=== PATIENT | female | born 1965 | race Caucasian/White ===

== ENCOUNTER 2019-12-08 07:49 | Outpatient (CLI) | payer OTHER, SELFPAY ==
--- NOTE | ~2019-12-08 | US_ITS ---
EXAMINATION: US abdomen complete DATE: 12/08/2019 09:04 INDICATION: Abnormal findings of blood chemistry TECHNIQUE: Multiple grayscale and Doppler ultrasound images of the abdomen were obtained. COMPARISON: None available FINDINGS: The head and and body of the pancreas are normal. The pancreatic tail is obscured by bowel gas. The liver is normal with normal echogenicity and echotexture. No surface nodularity. Normal hepa topetal flow in the main portal vein. The gallbladder is normal with no abnormal wall thickening, per icholecystic fluid or stones. The normal common bile duct measures 3 mm. There was no sonographic Mur phy sign. The visualized portions of the aorta and inferior vena cava are normal. The right kidney measures 9.1 x 4.9 x 5.3 cm. The left kidney measures 9.5 x 5.0 x 5.6 cm. The kidney s demonstrate normal parenchymal echogenicity. There is no hydronephrosis. The spleen is normal in ap pearance and measures 10.8 cm. IMPRESSION: 1. No sonographic correlate for the patient's symptoms. Reviewed, dictated and finalized at location A.
== END 2019-12-08 07:50 | disposition home or self-care (01) ==
PROVIDERS: PCP Family Medicine; Visit Provider Physician Assistant Medical
DX: R79.89 Other specified abnormal findings of blood chemistry (principal)
CPT/HCPCS: 76700

== ENCOUNTER → 2020-07-13 06:57 | Outpatient (CLI) | payer OTHER, SELFPAY ==
[2020-07-14 19:48] LABS: SARS-CoV-2 RNA PCR Negative
== END ==
PROVIDERS: PCP Family Medicine; Visit Provider Nurse Practitioner Family
DX: Z20.822 Contact with and (suspected) exposure to COVID-19 (principal); J02.9 Acute pharyngitis, unspecified
CPT/HCPCS: C9803; U0003; U0005

== ENCOUNTER 2020-11-19 14:36 | Outpatient (CLI) | payer OTHER, SELFPAY ==
--- NOTE | ~2020-11-19 | MM_ITS ---
EXAMINATION: MM screening ludwig BI w benjamin HISTORY: Screening mammogram TECHNIQUE: Craniocaudal and mediolateral oblique 3-D tomosynthesis images were obtained and synthetic 2-D images were generated. CAD analysis was submitted and interpreted. COMPARISON: 07/13/2015, 07/14/2014 bilateral digital screening mammogram examinations BREAST PARENCHYMAL COMPOSITION: The breasts are almost entirely fatty. FINDINGS: There is no evidence of suspicious mass, calcification, or architectural distortion to sugg est malignancy in either breast. There has been no suspicious interval change. IMPRESSION: 1. No mammographic evidence of malignancy. 2. Recommend routine screening mammography in one year. BI-RADS Category 1: Negative Reviewed, dictated and finalized at location A.
== END 2020-11-19 14:37 | disposition home or self-care (01) ==
LOC: ANHIMG 14:38
PROVIDERS: PCP Family Medicine; Visit Provider Physician Assistant Medical
DX: Z12.31 Encounter for screening mammogram for malignant neoplasm of breast (principal)
CPT/HCPCS: 77063; 77067

== ENCOUNTER 2020-12-06 08:51 | Outpatient (CLI) | payer OTHER, SELFPAY ==
--- NOTE | 2020-12-24 09:48 | WPDHOMESLEEP ---
Sleep Study - Home Unattended Date of Study: 12/06/20 Ordering Provider: Mookie Perez MD Interpreting Provider: Carley Paula MD Home Sleep Study Type: Watch PAT Height: 1.78 m Weight: 122.47 kg Body Mass Index: 38.7 Neck Circumference (inches): 17 [place]: 15 Reason for Sleep Study Insomnia; fatigue snoring, tachycardia 10/24/2015- Basic sleep study; AHI 3.4 with loud snoring, lowest saturation 90%, elevated limb movement index Sleep History Derek Casey is a 55 year old female with a history of a sleep study in 2016 that showed mild apnea. She has fatigue, snoring and tachycardia. She has significant excessive daytime sleepiness and difficulty waking in the morning. There is a family history with her father having sleep apnea. She does not awaken from sleep feeling short of breath. She rarely awakens at night with heartburn, belching or coughing. She constantly snores and it is always loud enough that others complain about it. She occasionally has trouble sleeping with a cold. She does not wake up gasping for breath at night. She frequently has breathing problems at night observed by others. She frequently sweats excessively at night and notices her heart pounding or beating irregularly night. She frequently falls asleep during the day, never involuntarily and she never falls asleep while driving. She does not have loss of muscle tone was strong emotion. She rarely has daytime difficulties due to excessive sleepiness. She does not feel paralyzed on waking or falling asleep, does not have vivid dreamlike scenes upon awakening or falling asleep and does not feel afraid to go to sleep. She rarely has nightmares, she rarely remembers her dreams. She occasionally has racing thoughts, feelings of sadness, depression and anxiety. She rarely has muscular tension. She does not notice parts of her body jerking, she does not kick at night or have crawling or aching feelings in her legs. She does not have any kind of leg pain at night. She occasionally has morning jaw pain. She does not grind her teeth during sleep. She is not bothered by pain during the day or awakened by pain at night. She constantly wakes up feeling stiff in the morning. She does not wake up with sore or achy muscles. She frequently wakes up with pain in the neck and spine. She has palpitations and fatigue. Normal bedtime 8:00 p.m. falling asleep within 15 minutes waking 2-3 times at night to use the bathroom and then she returns to sleep within just a few minutes. She wakes the morning at 7:00 a.m.. She estimates getting 12 hours of sleep at night. On the weekends, she goes to bed later, 10:00 p.m. and wakes later, 9:00 a.m. She takes naps in the afternoon or evening. A short nap lasting 10 or 15 minutes is not refreshing. She is usually drowsy in the morning for 1 hour or longer. She feels better in the morning compared other times of day. Habits: Caffeine: 1 per day. Alcohol: social alcohol intake. No recreational drugs. [facility] Past Medical History Medical History BMI 40.0-44.9, adult Cardiac arrhythmia Degenerative arthritis of knee, bilateral Hypertension Surgical History Surgical History H/O knee surgery scope, july 2012 Dr. 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
[2020-12-24 10:15] VITALS: BMI 38.7
== END 2020-12-07 14:17 | disposition home or self-care (01) ==
LOC: ANHCSM 08:52
PROVIDERS: PCP Family Medicine; Visit Provider Family Medicine
DX: G47.00 Insomnia, unspecified (principal); G47.33 Obstructive sleep apnea (adult) (pediatric)
CPT/HCPCS: 95800

== ENCOUNTER 2022-05-27 09:07 | Outpatient (CLI) | payer OTHER, SELFPAY ==
[2022-05-27 09:38] LABS: Anion Gap 4 mmol/L (8-16); Blood Urea Nitrogen 11 mg/dL (7-17); Calcium 8.3 mg/dL (8.4-10.2); Carbon Dioxide 28 mmol/L (22-30); Chloride 105 mmol/L (98-107); Estimated Glomerular Filt Rate 52; Glucose 108 mg/dL (65-110); Potassium 4.2 mmol/L (3.4-5.0); Sodium 137 mmol/L (137-145)
--- NOTE | 2022-05-27 09:43 | ECG_ITS ---
Measurements Intervals [place] Rate: 142 P: NM: 0 QRS: -55 QRSD: 137 T: 10 QT: 288 QTc: 443 Interpretive Statements ATRIAL FLUTTER/TACHYCARDIA WITH RAPID VENTRICULAR RESPONSE WITH ABERRANT CONDUCTION OR VENTRICULAR PREMATURE COMPLEXES BASELINE ARTIFACT INTRAVENTRICULAR CONDUCTION DELAY [130+ ms QRS DURATION] CANNOT RULE OUT ANTEROSEPTAL MYOCARDIAL INFARCTION , OF INDETERMINATE AGE ABNORMAL ECG COMPARED TO ECG 05/27/2022 10:01:00 NO SIGNIFICANT CHANGES Electronically Signed On 05-27-2022 17:56:53 [employer] by Rick Wells M.D.
== END 2022-05-27 09:08 | disposition home or self-care (01) ==
PROVIDERS: PCP Family Medicine; Visit Provider Physician Assistant Medical
DX: I49.9 Cardiac arrhythmia, unspecified (principal); I45.9 Conduction disorder, unspecified; R94.31 Abnormal electrocardiogram [ECG] [EKG]
CPT/HCPCS: 36415; 80048; 93005

== ENCOUNTER 2022-05-27 10:59 | Inpatient (IN) | payer OTHER, SELFPAY ==
[2022-05-27] VITALS (64 sets, daily range): BP systolic 100–147; BP diastolic 71–107; PULSE 71–143; RESP 11–30; TEMP 36–36.6; O2SAT 91–100; BMI 41.4; BMI 42.5
--- NOTE | 2022-05-27 11:01 | ECG_ITS ---
Measurements Intervals [place] Rate: 144 P: [place]: 0 QRS: -39 QRSD: 96 T: -5 QT: 290 QTc: 449 Interpretive Statements ATRIAL FLUTTER/TACHYCARDIA WITH RAPID VENTRICULAR RESPONSE WITH ABERRANT CONDUCTION OR VENTRICULAR PREMATURE COMPLEXES BASELINE ARTIFACT CANNOT RULE OUT ANTEROSEPTAL MYOCARDIAL INFARCTION , OF INDETERMINATE AGE ABNORMAL ECG NO PREVIOUS ECG AVAILABLE FOR COMPARISON Electronically Signed On 05-27-2022 17:53:20 [employer] by Rick Wells M.D.
[2022-05-27] MEDS: METOPROLOL TARTRATE INJ 5 MG/5 ML VIAL IV PUSH (12:09)
[2022-05-27 12:14] LABS: Basophils Absolute Auto 0.1 K/mm3 (0.0-0.1); Basophils Percent Auto 0.9 % (0.2-1.2); Eosinophils Absolute Auto 0.1 K/mm3 (0-0.3); Eosinophils Percent Auto 0.8 % (0-4.4); Hematocrit 45.2 % (37.0-47.0); Hemoglobin 14.7 g/dL (12.0-15.0); Immature Granulocyte Absolute 0.03 K/mm3 (0.00-0.031); Immature Granulocyte Percent A 0.3 % (0-0.5); Lymphocytes Absolute Auto 1.71 K/mm3 (0.9-3.2); Lymphocytes Percent Auto 18.5 % (18.3-44.2); Mean Corpuscular HGB Conc 32.5 g/dl (32-36); Mean Corpuscular Hemoglobin 30.2 pg (26-34); Mean Platelet Volume 11.1 fl (7.4-10.4); Monocytes Absolute Auto 0.6 K/mm3 (0.1-0.6); Monocytes Percent Auto 6.4 % (2.6-8.5); Neutrophils Absolute Auto 6.7 K/mm3 (1.3-6.7); Neutrophils Percent Auto 73.1 % (45.5-73.1); Platelet Count Result 267 k/mm3 (150-375); Red Blood Count 4.86 M/mm3 (4.2-5.4); Red Cell Distribution Width 13.2 % (11.5-14.5); White Blood Count 9.2 K/mm3 (4.5-10.0)
[2022-05-27 12:26] LABS: Alanine Aminotransferase 21 U/L (6-35); Albumin Level 3.9 g/dL (3.5-5.1); Alkaline Phosphatase 53 U/L (38-126); Anion Gap 4 mmol/L (8-16); Aspartate Amino Transferase 26 U/L (14-36); Bilirubin,Total 1.5 mg/dL (0.2-1.3); Blood Urea Nitrogen 11 mg/dL (7-17); Calcium 8.5 mg/dL (8.4-10.2); Carbon Dioxide 29 mmol/L (22-30); Chloride 105 mmol/L (98-107); Estimated CRCL calculation 76 ml/min; Estimated Glomerular Filt Rate 52; Glucose 99 mg/dL (65-110); Potassium 4.1 mmol/L (3.4-5.0); Sodium 138 mmol/L (137-145)
[2022-05-27 12:29] LABS: Prothrombin Time 13.2 Seconds (11.1-14.7)
[2022-05-27 12:30] LABS: Partial Thromboplastin Time 24.1 SECONDS (22.3-36.8)
[2022-05-27 12:37] LABS: Troponin I < 0.012 ng/mL (0.000-0.034)
[2022-05-27] MEDS: dilTIAZem HCl INJ 25 MG/5 ML VIAL 15 MG IV PUSH (12:55)
--- NOTE | 2022-05-27 13:40 | ED.GENADULT ---
HPI - General Adult General Chief complaint: Recheck/Abnormal Lab/Rx Stated complaint: new onset afib Time Seen by Provider: 05/27/22 11:23 Source: patient Mode of arrival: ambulatory Limitations: no limitations History of Present Illness HPI narrative: 57-year-old with a history of hypertension, morbid obesity, NAS here with complaints of not feeling well for past few days. Patient states that she was to her primary doctor's office for her blood pressure check and blood work however she was found to have high heart rate was later referred to the ER for evaluation of her heart rate. Patient states that approximately 5 or 6 years ago she had a similar episode. She presently denies any chest pain, shortness of breath or vomiting or fever or feeling lightheaded. Related Data Allergies Allergy/AdvReac Type Severity Reaction Status Date / Time Penicillins Allergy Unknown Unknown Verified 05/27/22 07:27 sulfanilamide Allergy Unknown Unknown Verified 05/27/22 07:27 Review of Systems Review of Systems: All systems reviewed & are unremarkable except as noted in HPI and below Constitutional: Constitutional: Reports no additional constitutional complaints Eyes: Eyes: Reports no additional eye complaints ENT: Reports system reviewed and no additional complaints, except as documented Cardiovascular: Cardiovascular: Reports as per HPI Respiratory: Respiratory: Reports no additional respiratory complaints Gastrointestinal: Gastrointestinal: Reports no additional gastrointestinal complaints Musculoskeletal: Musculoskeletal: Reports no additional musculoskeletal complaints Integumentary/Breasts: Skin/Breast: Reports system reviewed and no additional complaints, except as docu Neurologic: Reports system reviewed and no additional complaints, except as documented Psychiatric: Psychiatric: Reports no additional psychiatric complaints [facility] Past Medical History Medical History BMI 40.0-44.9, adult Cardiac arrhythmia Degenerative arthritis of knee, bilateral Hypertension Surgical History Surgical History H/O knee surgery scope, july 2012 Dr. Torres H/O: section Family History Family History Father Hypertension Mother Hypertension Diabetes mellitus Heart disease Sibling COVID-19 Social History Social History Smoking status: Never smoker Second hand tobacco smoke exposure: No Alcohol intake: current Substance use: former Substance use type: does not use Lack of Transportation: No Lack of Food: Never True Current Housing: I Have Housing Concerned About Future Housing: No Difficulty Paying Gas/Electric Bills: No Difficulty Paying for Meds: No Currently Unemployed: No Education: Master's Degree or Higher Difficulty w/ Childcare or Family Care: No 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 HEAD: Normocephalic, atraumatic. EYES: PERRLA and EOMI.. NECK: Supple. CHEST: Clear to auscultation. No respiratory distress. HEART: Tachycardic ABDOMEN: Soft, nontender, nondistended, normal active bowel sounds. EXTREMITIES: Normal range of motion. No edema. SKIN: Warm, dry, no rash. NEURO: No focal deficits. Alert and oriented x3. PSYCH: Normal mood and affect. Course Course Emergency Course: Patient upon arrival was tachycardic EKG shows a flutter with a heart rate in 140s. I did give her IV Lopressor 5 mg which has brought her heart rate down, I opted to give her Cardizem 15 mg IV push which brought her heart rate down to 88 and she still remains in flutter we will start Cardizem drip. Consult cardiology likely admit her to the
[2022-05-27] MEDS: dilTIAZem 100 MG/100 ML 100 MG/100 ML BAG IV CONT (13:48)
[2022-05-27 13:52] LABS: Influenza A QL RT-PCR Negative (Negative); Influenza B QL RT-PCR Negative (Negative); SARS-CoV-2 RNA PCR Negative
[2022-05-27] MEDS: ENOXAPARIN 100 MG/ML SYRINGE SUB-Q (14:26)
[2022-05-27] MEDS: ENOXAPARIN 30 MG/0.3 ML SYRINGE SUB-Q (14:27)
[2022-05-27] MEDS: dilTIAZem HCl INJ 25 MG/5 ML VIAL 10 MG IV PUSH (16:41)
--- NOTE | 2022-05-27 16:47 | PC.NURSE ---
Patient's heart rate fluctuating back up to 130s-140s with many PVCs. Dr. Serna notified and verbal order received for Cardizem 10 mg IV push. Instructed not to increase the drip rate. Order read back and verified twice.
[2022-05-27 17:07] LABS: Troponin I < 0.012 ng/mL (0.000-0.034)
--- NOTE | 2022-05-27 17:26 | ADMGEN ---
This patient, Helen Casey, was admitted to IMU Room 211-01. Patient/family oriented to hospital policies and general routines including ID bracelet, bed and alarms, visiting hours, pain management, procedures, bathroom and other care routines, personal items, smoking policy, room service/diet, and visiting hours. Information on how to activate the Rapid Response Team has been discussed. Patient/Family are encouraged to report perceived risks to care and to ask questions if they do not understand what they are told or what they should do.
--- NOTE | 2022-05-27 19:00 | PM.IMHP ---
H&P: HPI History of Present Illness Date/Time: 05/27/22 19:00 Chief Complaint: Abnormal heart rate. Narrative: This is a very pleasant 57-year-old female with hypertension and sleep apnea who presented to the emergency department from her doctor's office for evaluation of abnormal heart rate. She went to her doctor for a blood pressure check today and incidentally she was found to have a rapid heart rate of which she was asymptomatic. EKG done in office was concerning for atrial fibrillation or flutter and she was sent to the ER. EKG did show atrial flutter/tachycardia with rapid ventricular response and evidence of a possible anteroseptal UT and she is being admitted in this setting for further workup. She reports a history of wide complex tachycardia and had an extensive workup for that in [place] several years ago. To her knowledge she was never diagnosed with atrial fibrillation, atrial flutter, or ventricular tachycardia and she reports an unremarkable workup. She does not have any sensations of racing heart, palpitations, or chest discomfort though with further questioning she has been increasingly fatigued and more short of breath with exertion for the past month or so. She also admits that her smart watch has told her that her heart rate has been in the 140s previously though she had no sensations of racing heart and she thought that it was broken. She was diagnosed with sleep apnea within the last year but she admits that she is not very compliant with the CPAP however when she does wear it she feels a lot less tired throughout the day. She has no known history of thyroid disease. She denies significant alcohol and caffeine use. No syncope, presyncope, pleuritic pain, paroxysmal nocturnal dyspnea, orthopnea, or lower extremity edema. Review of Systems Review of Systems: Twelve systems were reviewed and are negative except for as per HPI. [facility] Past Medical History Medical History (Updated 05/27/22 @ 21:13 by Sadia Newby PA-C) BMI 40.0-44.9, adult Degenerative arthritis of knee, bilateral Hypertension Obstructive sleep apnea on CPAP Surgical History Surgical History (Updated 05/27/22 @ 21:09 by Sadia Newby PA-C) History of arthroscopic knee surgery (07/2012) History of section Family History Family History Father Hypertension Mother Diabetes mellitus Hypertension Heart disease Sibling COVID-19 Social History Social History (Updated 05/27/22 @ 21:12 by Sadia Newby PA-C) Social History: Surrogate medical decision maker: Tomi Casey, spouse. Code status: Full code. Smoking status: Never smoker Second hand tobacco smoke exposure: No Alcohol intake: current Drinks per week: 1 Substance use: never Substance use type: does not use Other substance usage details: 1 ruth a month Lack of Transportation: No Lack of Food: Never True Current Housing: I Have Housing Concerned About Future Housing: No Difficulty Paying Gas/Electric Bills: No Difficulty Paying for Meds: No Currently Unemployed: No Education: Master's Degree or Higher Difficulty w/ Childcare or Family Care: No Additional living arrangements comments: Lives in [place] with spouse. They have 3 children. 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 Spiritual care concerns: No Meds Home Medications and Allergies Home Medications Medication Instructions Recorded Confirmed Type albuterol sulfate 90 mcg/actuation See Rx Instructions .Route 03/04/21 05/27/22 Rx aerosol inhaler .COMPLEX #36 grams meloxicam 15 mg tablet 15 mg PO DAILY #90 tabs 08/12/21 05/27/22 Rx levonorgestrel 0.15 mg-ethinyl 1 tablet PO DAILY #91 ea 02/11/22 05/27/22 Rx estradiol 30 mcg tablets,3 mos pack(91) escitalopram oxalate 20 mg tablet 20 mg PO DAILY #90 tabs 04/23/22 05/27/22 Rx (Lexapro) losartan 50 mg
[2022-05-27 20:54] LABS: Troponin I < 0.012 ng/mL (0.000-0.034)
[2022-05-27] MEDS: ENOXAPARIN 80 MG/0.8 ML SYRINGE 130 MG SUB-Q (22:48)
[2022-05-27] MEDS: METOPROLOL TARTRATE 50 MG TAB BY MOUTH (22:49)
[2022-05-28] VITALS (22 sets, daily range): BP systolic 137–149; BP diastolic 82–114; PULSE 20–128; RESP 18–23; TEMP 35.7–36.7; O2SAT 94–99
[2022-05-28 05:26] LABS: Anion Gap 6 mmol/L (8-16); Blood Urea Nitrogen 11 mg/dL (7-17); Calcium 8.3 mg/dL (8.4-10.2); Carbon Dioxide 26 mmol/L (22-30); Chloride 107 mmol/L (98-107); Estimated CRCL calculation 84 ml/min; Estimated Glomerular Filt Rate 58; Glucose 95 mg/dL (65-110); Sodium 139 mmol/L (137-145)
--- NOTE | 2022-05-28 08:00 | ECHO_ITS ---
Patient Info Name: Helen Casey Age: 57 years : 1965 Gender: Female Ht: 70 in Wt: 296 lbs BSA: 2.64 m2 HR: 68 bpm BP: 142 / 90 mmHg Heart Rhythm: Atrial Flutter Exam Date: 05/28/2022 11:18 AM Exam Location: [facility] Patient Status: Inpatient Admit Date: 05/27/2022 Staff Ordering Physician: Sadia Newby PA-C Actuary Clerk: Ivan Leslie, KADEN, RT Attending Provider: Barrett Mullen MD Referring Physician: Keyonna AGUILAR; Exam Type: CA echo dop color flow w con Study Info Indications - Atrial Flutter I49.8 - Other specified cardiac arrhythmias Complete two-dimensional, color flow and Doppler transthoracic echocardiogram is performed with contrast to opacify the left ventricle and to improve the deliniation of the left ventricle endocardial borders. Summary 1. Technically difficult study with limited views. Definity contrast enhancement administered. 2. Left ventricular chamber dimension is normal. 3. Left ventricular systolic function is lower limits of normal, estimated at 50-55%. 4. There is moderately increased left ventricular wall thickness. 5. The left ventricular diastolic function is abnormal. 6. Left atrial chamber dimension is mildly enlarged. 7. There is moderate mitral valve regurgitation. 8. There is mild tricuspid valve regurgitation. 9. Moderate pulmonary hypertension, estimated pulmonary arterial systolic pressure is 50 mmHg. 10. Dilated inferior vena cava with <50% collapse upon inspiration consistent with significantly elevated right atrial pressure, 15 mmHg. Left Ventricle Left ventricular chamber dimension is normal. Left ventricular systolic function is lower limits of normal, estimated at 50-55%. There is moderately increased left ventricular wall thickness. The left ventricular diastolic function is abnormal. Technically difficult study with limited views. Definity contrast enhancement administered. Right Ventricle Right ventricular chamber dimension is normal. Right ventricular systolic function is normal. Left Atria Left atrial chamber dimension is mildly enlarged. Right Atria Right atrial chamber dimension is mildly enlarged. Aortic Valve The aortic valve is probable trileaflet. There is no aortic valve stenosis. There is trace aortic valve regurgitation. Pulmonic Valve The pulmonic valve is not well visualized. Mitral Valve The mitral valve has thickened leaflets. There is moderate mitral valve regurgitation. Tricuspid Valve The tricuspid valve leaflets are normal. There is mild tricuspid valve regurgitation. Moderate pulmonary hypertension, estimated pulmonary arterial systolic pressure is 50 mmHg. Pericardium/Pleural The pericardium appears epicardial fat pad. There is no pericardial effusion. Inferior Vena Cava Dilated inferior vena cava with <50% collapse upon inspiration consistent with significantly elevated right atrial pressure, 15 mmHg. Aorta The aortic root size at the sinus of Valsalva is normal. There is mild aortic atherosclerosis. Left Ventricular Outflow Tract Name Value Normal LVOT 2D LVOT Diameter 2.21 cm LVOT Doppler
[2022-05-28] MEDS: ENOXAPARIN 80 MG/0.8 ML SYRINGE 130 MG SUB-Q (08:04)
[2022-05-28] MEDS: ESCITALOPRAM OXALATE 10 MG TABLET 20 MG PO (08:04)
[2022-05-28] MEDS: LOSARTAN POTASSIUM 25 MG TABLET BY MOUTH (08:04)
[2022-05-28] MEDS: LOSARTAN POTASSIUM 50 MG TABLET BY MOUTH (08:05)
[2022-05-28] MEDS: MELOXICAM 7.5 MG TABLET 15 MG PO (08:05)
[2022-05-28] MEDS: METOPROLOL TARTRATE 50 MG TAB BY MOUTH (08:06)
[2022-05-28] MEDS: dilTIAZem 100 MG/100 ML 100 MG/100 ML BAG IV CONT (08:49)
[2022-05-28] MEDS: ALBUTEROL SULFATE (*SP) AEROSOL 1 PUFF INHALATION (09:05)
[2022-05-28] MEDS: PERFLUTREN LIPID MICROSPHERES 1.5 ML VIAL DILUTED TO 10 ML TOTAL VOLUME IV PUSH (11:49)
--- NOTE | 2022-05-28 11:49 | IVDEFINITY ---
Prior to administration of IV Definity the patient was educated on the risks and benefits of the imaging enhancing agent including potential adverse side effects. The patient verbalized understanding. Allergies were verified. No exclusion criteria were identified and at least one of the following inclusion criteria were met: 1) physician request, 2) patient technically difficult to image (per the [place] [employer] Echocardi[employer] guidelines of two or more segments not discernable within the apical view), or 3) questionable left ventricular function. ?
--- NOTE | 2022-05-28 11:53 | PM.IMPN ---
Progress Note: A&P Assessment and Plan (1) Atrial flutter with rapid ventricular response: Code(s): I48.92 - Unspecified atrial flutter Status: Acute Assessment and Plan: Heart rate still elevated. Continue Cardizem drip. Cardiology consult. On anticoagulation (2) Hypertension: Code(s): I10 - Essential (primary) hypertension Status: Acute (3) Obstructive sleep apnea on CPAP: Code(s): G47.33 - Obstructive sleep apnea (adult) (pediatric); Z99.89 - Dependence on other enabling machines and devices Status: Acute Assessment and Plan: CPAP Subjective Date/time seen: 05/28/22 11:53 No new complaints. Heart rate still elevated. Exam Narrative: General: Well-developed female supine in bed in no distress. Weight: 34.3 kilograms. BMI: 42.5. HEENT: PERRL, EOMI. Sclera anicteric. Oral mucosa moist. Neck: Supple. No obvious JVD. Respiratory: Lungs are clear to auscultation bilaterally. Cardiovascular: Tachycardic with normal S1-S2. Gastrointestinal: Abdomen is soft, obese, nontender, and nondistended with positive bowel sounds. Skin: Warm and dry. No rash or lesions on limited exam. Extremities: No cyanosis, clubbing, or edema. Radial and pedal pulses intact. Neurological: Alert. Cranial nerves 2-12 are grossly intact. No gross focal deficits to casual conversation. Psychiatric: Pleasant and cooperative with normal mood and affect. Judgment and insight intact. Objective Data Vital Signs Vital Signs: Vital Signs - 24 hr 05/27/22 12:09 05/27/22 12:00 05/27/22 12:15 Temperature Pulse Rate 141 H 141 H 143 H Respiratory Rate 24 H 13 Blood Pressure Pulse Oximetry 98 94 Oxygen Delivery 05/27/22 12:16 05/27/22 12:25 05/27/22 12:26 Temperature Pulse Rate 139 H 139 H 142 H Respiratory Rate 13 12 13 Blood Pressure 131/100 H Pulse Oximetry 100 96 98 Oxygen Delivery 05/27/22 12:30 05/27/22 12:33 05/27/22 12:34 Temperature Pulse Rate 140 H 139 H 140 H Respiratory Rate 11 L 23 H 17 Blood Pressure Pulse Oximetry 95 96 97 Oxygen Delivery 05/27/22 12:45 05/27/22 12:48 05/27/22 12:49 Temperature Pulse Rate 140 H 140 H 142 H Respiratory Rate 16 21 H 18 Blood Pressure 115/91 H Pulse Oximetry 97 97 96 Oxygen Delivery 05/27/22 13:00 05/27/22 13:01 05/27/22 13:02 Temperature Pulse Rate 86 84 77 Respiratory Rate 18 21 H 23 H Blood Pressure 100/71 Pulse Oximetry Oxygen Delivery 05/27/22 13:15 05/27/22 13:16 05/27/22 13:30 Temperature Pulse Rate 83 82 91 Respiratory Rate 22 H 22 H 19 Blood Pressure 123/90 Pulse Oximetry 98 96 96 Oxygen Delivery 05/27/22 13:31 05/27/22 13:45 05/27/22 13:46 Temperature Pulse Rate 85 82 71 Respiratory Rate 25 H 22 H 19 Blood Pressure 123/98 H 130/97 H Pulse Oximetry 99 97 99 Oxygen Delivery 05/27/22 13:48 05/27/22 13:47 05/27/22 14:00 Temperature Pulse Rate 81 97 75 Respiratory Rate 22 H 23 H Blood Pressure 130/97 H Pulse Oximetry 98 95 Oxygen Delivery 05/27/22 14:01 05/27/22 14:02 05/27/22 14:15 Temperature Pulse Rate 73 71 79 Respiratory Rate 22 H 18 23 H Blood Pressure 127/95 H Pulse Oximetry 96 97 96 Oxygen Delivery 05/27/22 14:16 05/27/22 14:17 05/27/22 14:30 Temperature Pulse Rate 79 75 93 Respiratory Rate 19 14 22 H Blood Pressure 125/89 Pulse Oximetry 97 98 96 Oxygen Delivery 05/27/22 14:31 05/27/22 14:45 05/27/22 14:46 Temperature Pulse Rate 77 82 74 Respiratory Rate 20 30 H 15 Blood Pressure 134/96 H 127/91 H Pulse Oximetry 100 97 96 Oxygen Delivery 05/27/22 14:47 05/27/22 15:00 05/27/22 15:01 Temperature Pulse Rate 74 91 82 Respiratory Rate 20 16 22 H Blood Pressure 123/94 H Pulse Oximetry 98 97 98 Oxygen Delivery 05/27/22 15:15 05/27/22 15:16 05/27/22 15:30 Temperature Pulse Rate 82 71 71 Respiratory Rate 19 18 18 Blood Pressure 126/92 H
[2022-05-28] MEDS: dilTIAZem HCL 30 MG TABLET PO (13:40)
--- NOTE | 2022-05-28 15:30 | PM.CNCAR ---
Assessment and Plan Assessment and plan (1) Atrial flutter with rapid ventricular response: Code(s): I48.92 - Unspecified atrial flutter Status: Acute Assessment and Plan: Mildly symptomatic new diagnosis atrial flutter with rapid ventricular response with fatigue declining activity tolerance which she believes she has noted periodically in the past although sustained over the past 5-7 days. Heart rate better controlled in atrial flutter. CHADS2 Vasc score 3 (HTN, female, recent diagnosis DM started on Metformin then stopped in favor of Ozempic). We discussed management options including rate versus rhythm control. We discussed embolic stroke risk associated with atrial flutter as well as atrial fibrillation. We discussed options for DAVID guided cardioversion in attempt to restore sinus rhythm. Given her NAS and obesity if DAVID guided cardioversion attempted would be best served with Anesthesiology. Patient is comfortable to rate control this time and follow as an outpatient after performing systemic anticoagulation. The plan for 7 day Holter monitor as outpatient to document persistence in overall heart rate control upon discharge. Patient agrees with rate control strategy at this time. TSH stable 3.960. Discontinue enoxaparin in favor of Xarelto 20 mg at bedtime to begin this evening. We discussed risks, benefits and alternatives. We discussed bleeding risk versus reduction in embolic stroke risk. Caution with ambulation to falls, head injury bleeding go to ER immediately. Discontinue diltiazem. Increase metoprolol tartrate to 100 mg twice daily to simplify regimen as tolerated. Compliance to CPAP. Discussed increased risk for tachyarrhythmias noncompliance. She verbalized understanding and agreed to comply. Provided heart rate remains reasonably controlled overnight and tolerating medical therapy anticipate discharge home tomorrow to follow up as an outpatient with Holter monitor in for planned cardioversion to restore sinus rhythm in approximately 1 month. All questions answered to her satisfaction. Patient verbalized understanding and agreed with plan of care. Outpatient referral to electrophysiology Dr Tubbs at [facility] as she has seen them previously for considerations for atrial flutter ablation. 2D echocardiogram moderate LVH, lower limit normal EF 50-55%. She will require follow-up with me within the next to 3 weeks. (2) Hypertension: Code(s): I10 - Essential (primary) hypertension Status: Acute Assessment and Plan: Hypertensive but stable. Continue losartan. If BP remains elevated increased to 100 mg daily. 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 Initially started metformin which was subsequently discontinued in favor of Ozempic. (4) Mitral regurgitation: Code(s): I34.0 - Nonrheumatic mitral (valve) insufficiency Status: Acute Assessment and Plan: Moderate in severity by echocardiogram. Will continue to monitor. Mild left atrial enlargement. (5) Pulmonary hypertension: Code(s): I27.20 - Pulmonary hypertension, unspecified Status: Acute Assessment and Plan: Moderate pulmonary hypertension RVSP estimated 50 mmHg with dilated IVC and less than 50% collapse estimated right atrial pressure 10-15 mm Hg. (6) Obstructive sleep apnea on CPAP: Code(s): G47.33 - Obstructive sleep apnea (adult) (pediatric); Z99.89 - Dependence on other enabling machines and devices Status: Acute Assessment and Plan: Compliance with CPAP as coun
[2022-05-28] MEDS: METOPROLOL TARTRATE INJ 5 MG/5 ML VIAL IV PUSH (17:26)
[2022-05-28] MEDS: RIVAROXABAN 20 MG TABLET PO (17:31)
[2022-05-28] MEDS: METOPROLOL TARTRATE 50 MG TAB PO (21:32)
[2022-05-29] VITALS (19 sets, daily range): BP systolic 119–152; BP diastolic 76–125; PULSE 62–135; RESP 18–22; TEMP 35.5–36.7; O2SAT 95–97
--- NOTE | 2022-05-29 08:00 | ECG_ITS ---
Measurements Intervals [place] Rate: 114 P: VT: 0 QRS: -48 QRSD: 96 T: -11 QT: 314 QTc: 433 Interpretive Statements ATRIAL FLUTTER/TACHYCARDIA WITH RAPID VENTRICULAR RESPONSE WITH ABERRANT CONDUCTION OR VENTRICULAR PREMATURE COMPLEXES MARKED LEFT AXIS DEVIATION [QRS AXIS < -30] POSSIBLE ANTERIOR MYOCARDIAL INFARCTION , OF INDETERMINATE AGE [30 ms Q WAVE IN V3/V4, OR R < 0.2 mV IN V4] COMPARED TO ECG 05/27/2022 11:06:42 NO SIGNIFICANT CHANGES Electronically Signed On 05-29-2022 14:58:12 FLARE BREAKER by Romulo Samuel M.D.
[2022-05-29] MEDS: LOSARTAN POTASSIUM 50 MG TABLET BY MOUTH (08:56)
[2022-05-29] MEDS: METOPROLOL TARTRATE 50 MG TAB 100 MG BY MOUTH ×2 (08:56→20:56)
[2022-05-29] MEDS: ESCITALOPRAM OXALATE 10 MG TABLET 20 MG PO (08:57)
[2022-05-29] MEDS: LOSARTAN POTASSIUM 25 MG TABLET BY MOUTH (08:57)
--- NOTE | 2022-05-29 09:22 | PM.PNCARD ---
Progress Note: A&P Assessment and Plan (1) Atrial flutter with rapid ventricular response: Code(s): I48.92 - Unspecified atrial flutter <MARIA LUISA Gong - Last Filed: 05/29/22 11:17> Status: Acute <MARIA LUISA Gong - Last Filed: 05/29/22 11:17> Assessment and Plan: Mildly symptomatic new diagnosis atrial flutter with rapid ventricular response with fatigue declining activity tolerance which she believes she has noted periodically in the past although sustained over the past 5-7 days. Attempting rate control strategy with metoprolol. Unfortunately, she remains in atrial flutter with RVR this morning rate in the 130's. Will restart diltiazem 30mg q6, but discussed plan for DAVID/CV tomorrow with anesthesia if she is not adequately rate controlled on this regimen. Patient verbalizes understanding and is in agreement with this plan. NPO after midnight. <MARIA LUISA Gong - Last Filed: 05/29/22 11:17> (2) Hypertension: Code(s): I10 - Essential (primary) hypertension <MARIA LUISA Gong - Last Filed: 05/29/22 11:17> Status: Acute <MARIA LUISA Gong - Last Filed: 05/29/22 11:17> Assessment and Plan: Hypertensive but stable. Continue losartan. If BP remains elevated increased to 100 mg daily. <MARIA LUISA Gong - Last Filed: 05/29/22 11:17> (3) Diabetes mellitus: Qualifiers: Diabetes mellitus complication status: without complication Diabetes mellitus penitentiary insulin use: without rn long term care use Diabetes mellitus type: type 2 Qualified Code(s): E11.9 - Type 2 diabetes mellitus without complications <MARIA LUISA Gong - Last Filed: 05/29/22 11:17> Code(s): E11.9 - Type 2 diabetes mellitus without complications <MARIA LUISA Gong - Last Filed: 05/29/22 11:17> Status: Acute <MARIA LUISA Gong - Last Filed: 05/29/22 11:17> Assessment and Plan: On Ozempic <MARIA LUISA Gong - Last Filed: 05/29/22 11:17> (4) Mitral regurgitation: Code(s): I34.0 - Nonrheumatic mitral (valve) insufficiency <MARIA LUISA Gong - Last Filed: 05/29/22 11:17> Status: Acute <MARIA LUISA Gong - Last Filed: 05/29/22 11:17> Assessment and Plan: Moderate in severity by echocardiogram. Outpatient surveillance. <MARIA LUISA Gong - Last Filed: 05/29/22 11:17> (5) Pulmonary hypertension: Code(s): I27.20 - Pulmonary hypertension, unspecified <MARIA LUISA Gong - Last Filed: 05/29/22 11:17> Status: Acute <MARIA LUISA Gong - Last Filed: 05/29/22 11:17> Assessment and Plan: Moderate pulmonary hypertension RVSP estimated 50 mmHg with dilated IVC and less than 50% collapse estimated right atrial pressure 10-15 mm Hg. <MARIA LUISA Gong - Last Filed: 05/29/22 11:17> (6) Obstructive sleep apnea on CPAP: Code(s): G47.33 - Obstructive sleep apnea (adult) (pediatric); Z99.89 - Dependence on other enabling machines and devices <MARIA LUISA Gong - Last Filed: 05/29/22 11:17> Status: Acute <MARIA LUISA Gong - Last Filed: 05/29/22 11:17> Assessment and Plan: On CPAP <MARIA LUISA Gong - Last Filed: 05/29/22 11:17> (7) Morbid obesity: Code(s): E66.01 - Morbid (severe) obesity due to excess calories <MARIA LUISA Gong - Last Filed: 05/29/22 11:17> Status: Acute <MARIA LUISA Gong - Last Filed: 05/29/22 11:17> Assessment and Plan: Lifestyle modifications counseling, weight loss. <MARIA LUISA Gong - Last Filed: 05/29/22 11:17> Assessment and Plan: Attending addendum: I agree with the above documentation and plan of care as outlined. <Rick Wells MD - Last Filed: 05/29/22 13:41> Subjective Date/time seen: 05/29/22 09:22 Cardiology follow up for atrial flutter <MARIA LUISA Gong - Last Filed: 05/29/22 11:17> Interval history: Fee
[2022-05-29 10:40] LABS: Anion Gap 4 mmol/L (8-16); Blood Urea Nitrogen 9 mg/dL (7-17); Calcium 8.4 mg/dL (8.4-10.2); Carbon Dioxide 28 mmol/L (22-30); Chloride 102 mmol/L (98-107); Estimated CRCL calculation 84 ml/min; Estimated Glomerular Filt Rate 58; Glucose 109 mg/dL (65-110); Magnesium 1.9 mg/dL (1.6-2.3); Potassium 4.1 mmol/L (3.4-5.0); Sodium 134 mmol/L (137-145)
[2022-05-29] MEDS: dilTIAZem HCL 30 MG TABLET PO ×3 (13:02→23:34)
--- NOTE | 2022-05-29 13:18 | PM.IMPN ---
Progress Note: A&P Assessment and Plan (1) Atrial flutter with rapid ventricular response: Code(s): I48.92 - Unspecified atrial flutter Status: Acute Assessment and Plan: Heart rate still elevated. Continue Cardizem drip. Cardiology consult. On anticoagulation (2) Hypertension: Code(s): I10 - Essential (primary) hypertension Status: Acute (3) Obstructive sleep apnea on CPAP: Code(s): G47.33 - Obstructive sleep apnea (adult) (pediatric); Z99.89 - Dependence on other enabling machines and devices Status: Acute Assessment and Plan: CPAP Subjective Date/time seen: 05/29/22 13:18 no complaints Exam Narrative: General: Well-developed female supine in bed in no distress. Weight: 34.3 kilograms. BMI: 42.5. HEENT: PERRL, EOMI. Sclera anicteric. Oral mucosa moist. Neck: Supple. No obvious JVD. Respiratory: Lungs are clear to auscultation bilaterally. Cardiovascular: Tachycardic with normal S1-S2. Gastrointestinal: Abdomen is soft, obese, nontender, and nondistended with positive bowel sounds. Skin: Warm and dry. No rash or lesions on limited exam. Extremities: No cyanosis, clubbing, or edema. Radial and pedal pulses intact. Neurological: Alert. Cranial nerves 2-12 are grossly intact. No gross focal deficits to casual conversation. Psychiatric: Pleasant and cooperative with normal mood and affect. Judgment and insight intact. Objective Data Vital Signs Vital Signs: Vital Signs - 24 hr 05/28/22 14:00 05/28/22 16:58 05/28/22 17:26 Temperature 96.8 F L Pulse Rate 70 91 90 Respiratory Rate 23 H Blood Pressure 149/101 H Pulse Oximetry 94 Oxygen Delivery 05/28/22 16:00 05/28/22 16:00 05/28/22 18:00 Temperature Pulse Rate 74 101 H Respiratory Rate Blood Pressure Pulse Oximetry Oxygen Delivery Room Air 05/28/22 20:00 05/28/22 21:32 05/28/22 22:13 Temperature 97.9 F Pulse Rate 20 L 111 H 99 Respiratory Rate 20 Blood Pressure 137/82 Pulse Oximetry 97 96 Oxygen Delivery CPAP 05/28/22 22:14 05/28/22 23:29 05/28/22 20:00 Temperature 98.0 F Pulse Rate 120 H Respiratory Rate 18 Blood Pressure 141/101 H Pulse Oximetry 96 99 Oxygen Delivery Room Air Room Air 05/29/22 00:00 05/28/22 20:00 05/28/22 22:00 Temperature Pulse Rate 102 H 107 H Respiratory Rate Blood Pressure Pulse Oximetry Oxygen Delivery Room Air 05/29/22 02:45 05/29/22 04:00 05/29/22 04:00 Temperature 98.0 F Pulse Rate 96 107 H Respiratory Rate 18 Blood Pressure 152/99 H Pulse Oximetry 95 97 Oxygen Delivery CPAP Room Air 05/29/22 00:00 05/29/22 02:00 05/29/22 04:00 Temperature Pulse Rate 95 111 H 113 H Respiratory Rate Blood Pressure Pulse Oximetry Oxygen Delivery 05/29/22 06:00 05/29/22 08:40 05/29/22 08:56 Temperature 96.9 F L Pulse Rate 115 H 135 H 113 H Respiratory Rate 20 Blood Pressure 145/97 H Pulse Oximetry 97 Oxygen Delivery 05/29/22 08:00 05/29/22 10:00 05/29/22 08:00 Temperature Pulse Rate 107 H 124 H Respiratory Rate Blood Pressure Pulse Oximetry Oxygen Delivery Room Air 05/29/22 12:31 Temperature 95.9 F L Pulse Rate 121 H Respiratory Rate 22 H Blood Pressure 142/125 H Pulse Oximetry 96 Oxygen Delivery Intake/Output Intake/Output: Intake & Output 05/26/22 05/27/22 05/28/22 05/29/22 23:59 23:59 23:59 23:59 Intake Total 1745 1000 Output Total 325 350 Balance -325 1395 1000 Meds/Results Medications: Active Medications Generic Name Dose Route Start Last Admin Trade Name Freq PRN Reason Stop Dose Admin Acetaminophen 650 mg 05/27/22 13:50 Acetaminophen 325 Mg Tablet PO Q4H PRN Mild Pain (1-3) or Fever Albuterol 1 puff 05/28/22 00:00 05/28/22 09:05 Albuterol Sulfate (*Sp) Aerosol 1 Puff INHALATION 1 puff Q4HRT PRN Administration SOB OR WHEEZING Diltiazem HCl 3
[2022-05-29] MEDS: RIVAROXABAN 20 MG TABLET PO (18:00)
[2022-05-30] VITALS (24 sets, daily range): BP systolic 114–169; BP diastolic 63–97; PULSE 18–109; RESP 12–22; TEMP 35.6–37; O2SAT 93–99
--- NOTE | 2022-05-30 | ECHO_ITS ---
Patient Info Name: Helen Casey Age: 57 years : 1965 Gender: Female Ht: 70 in Wt: 296 lbs BSA: 2.64 m2 HR: 111 bpm BP: 150 / 99 mmHg Heart Rhythm: Atrial Flutter Technical Quality: Good Exam Date: 05/30/2022 1:44 PM Exam Location: [facility] Pul[facility] Patient Status: Inpatient Admit Date: 05/29/2022 Staff Ordering Physician: Olga Pearce Packing Machine Can Feeder: Mirella Basurto RDCS Attending Provider: Barrett Mullen MD Referring Physician: Portia GUDINO; Exam Type: CA echo transesophageal Study Info Indications - pre cardioversion Complete two-dimensional, color flow and Doppler transesophageal study is performed. Summary 1. Absence of left atrial appendage thrombus confirmed prior to cardioversion. Report Signatures
--- NOTE | 2022-05-30 | ECG_ITS ---
Measurements Intervals [place] Rate: 64 P: 48 SD: 185 QRS: -30 QRSD: 98 T: 9 QT: 416 QTc: 431 Interpretive Statements SINUS RHYTHM POOR R-WAVE PROGRESSION LEFTWARD AXIS ABNORMAL ECG COMPARED WITH PRIOR TRACING SINUS RHYTHM REPLACES ATRIAL FLUTTER Electronically Signed On 05-30-2022 15:07:11 CHEF PASSENGER VESSEL by Barrett Chaudhry M.D.
--- NOTE | 2022-05-30 | ECG_ITS ---
Measurements Intervals [place] Rate: 89 P: LA: 0 QRS: -48 QRSD: 96 T: 10 QT: 384 QTc: 469 Interpretive Statements ATRIAL FLUTTER/TACHYCARDIA WITH ABERRANT QRS MORPHOLOGY NOTED LEFT ANTERIOR FASCICULAR BLOCK [QRS AXIS <= -45, QR IN I, RS IN II] ABNORMAL ECG Electronically Signed On 05-30-2022 15:06:04 TRAINING MGR by Barrett Chaudhry M.D.
[2022-05-30] MEDS: dilTIAZem HCL 30 MG TABLET PO ×4 (06:08→23:20)
[2022-05-30] MEDS: METOPROLOL TARTRATE 50 MG TAB 100 MG BY MOUTH ×2 (09:53→20:25)
[2022-05-30] MEDS: LOSARTAN POTASSIUM 50 MG TABLET BY MOUTH (09:53)
[2022-05-30] MEDS: LOSARTAN POTASSIUM 25 MG TABLET BY MOUTH (09:53)
[2022-05-30] MEDS: ESCITALOPRAM OXALATE 10 MG TABLET 20 MG PO (09:54)
--- NOTE | 2022-05-30 13:03 | WPDANESEPPF ---
Anes - Initial Pre Proc Eval Procedure: Operation Date: 05/30/22 14:30 Proposed Procedures p Trans Esophageal Echo - Barrett Chaudhry MD s Electrical Cardioversion - Barrett Chaudhry MD Date/Time: 05/30/22 13:03 Surgeon: Barrett Mullen MD Pre Op Diagnosis: atrial flutter with rvr Patient Data Age: 57 Gender: F Height: 1.78 m Weight: 134.5 kg Last Vital Signs Temp 35.9 C L 05/30/22 12:13 Pulse 84 05/30/22 12:13 Resp 20 05/30/22 12:13 BP 133/85 05/30/22 12:13 Pulse Ox 97 05/30/22 12:13 O2 Del Method Room Air 05/30/22 04:00 Allergies Allergy/AdvReac Type Severity Reaction Status Date / Time Penicillins Allergy Unknown Unknown Verified 05/27/22 07:27 sulfanilamide Allergy Unknown Unknown Verified 05/27/22 07:27 Home Medications Medication Instructions Recorded Confirmed Type albuterol sulfate 90 mcg/actuation See Rx Instructions .Route 03/04/21 05/27/22 Rx aerosol inhaler .COMPLEX #36 grams meloxicam 15 mg tablet 15 mg PO DAILY #90 tabs 08/12/21 05/27/22 Rx levonorgestrel 0.15 mg-ethinyl 1 tablet PO DAILY #91 ea 02/11/22 05/27/22 Rx estradiol 30 mcg tablets,3 mos pack(91) escitalopram oxalate 20 mg tablet 20 mg PO DAILY #90 tabs 04/23/22 05/27/22 Rx (Lexapro) losartan 50 mg tablet See Rx Instructions .Route 04/23/22 05/27/22 Rx .COMPLEX #135 tabs metoprolol tartrate 50 mg tablet See Rx Instructions .Route 04/27/22 05/27/22 Rx .COMPLEX #180 tabs Patient hx anesthesia problems: none Family hx anesthesia problems: none Results Review: All pre-operative results and documents have been reviewed as part of the pre-operative evaluation. [facility]LY [facility] Past Medical History Medical History BMI 40.0-44.9, adult Degenerative arthritis of knee, bilateral Hypertension Obstructive sleep apnea on CPAP Surgical History Surgical History History of arthroscopic knee surgery (07/2012) History of section Family History Family History Father Hypertension Mother Diabetes mellitus Hypertension Heart disease Sibling COVID-19 Social History Social History Social History: Surrogate medical decision maker: Tomi Casey, spouse. Code status: Full code. Smoking status: Never smoker Second hand tobacco smoke exposure: No Alcohol intake: current Drinks per week: 1 Substance use: never Substance use type: does not use Other substance usage details: 1 ruth a month Lack of Transportation: No Lack of Food: Never True Current Housing: I Have Housing Concerned About Future Housing: No Difficulty Paying Gas/Electric Bills: No Difficulty Paying for Meds: No Currently Unemployed: No Education: Master's Degree or Higher Difficulty w/ Childcare or Family Care: No Additional living arrangements comments: Lives in [place] with spouse. They have 3 children. 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 Spiritual care concerns: No Anes - Eval Final PreProcedure Day of Procedure 05/30/22 13:03 Patient weight: morbidly obese Heart: regular rate and rhythm Lungs: clear to auscultation Airway: Mallampati scale class III Neurological: alert and oriented Last oral intake: >/= 8 hours ASA classification: III Emergent: no Anesthetic plan: proceed Anesthesia type and monitoring: general GIVS and standard monitoring Results Review: All pre-operative results and documents have been reviewed as part of the pre-operative evaluation. Informed Consent: The patient's anesthetic plan and its attendant risks and benefits were discussed with the patient/family/POA. Questions were solicited and answers provided to the satisfaction of the patient/family/POA.
--- NOTE | 2022-05-30 13:39 | PC.NURSE ---
1315-to DAVID /cardioversion procedure via bed accompanied by RN's
--- NOTE | 2022-05-30 14:17 | PM.IMPN ---
Progress Note: A&P Assessment and Plan (1) Atrial flutter with rapid ventricular response: Code(s): I48.92 - Unspecified atrial flutter Status: Acute Assessment and Plan: Heart rate still elevated. Continue Cardizem drip. Cardiology consult. On anticoagulation (2) Hypertension: Code(s): I10 - Essential (primary) hypertension Status: Acute (3) Obstructive sleep apnea on CPAP: Code(s): G47.33 - Obstructive sleep apnea (adult) (pediatric); Z99.89 - Dependence on other enabling machines and devices Status: Acute Assessment and Plan: CPAP Subjective Date/time seen: 05/30/22 14:17 No complaints plan for cardioversion today Exam Narrative: General: Well-developed female supine in bed in no distress. Weight: 34.3 kilograms. BMI: 42.5. HEENT: PERRL, EOMI. Sclera anicteric. Oral mucosa moist. Neck: Supple. No obvious JVD. Respiratory: Lungs are clear to auscultation bilaterally. Cardiovascular: Tachycardic with normal S1-S2. Gastrointestinal: Abdomen is soft, obese, nontender, and nondistended with positive bowel sounds. Skin: Warm and dry. No rash or lesions on limited exam. Extremities: No cyanosis, clubbing, or edema. Radial and pedal pulses intact. Neurological: Alert. Cranial nerves 2-12 are grossly intact. No gross focal deficits to casual conversation. Psychiatric: Pleasant and cooperative with normal mood and affect. Judgment and insight intact. Objective Data Vital Signs Vital Signs: Vital Signs - 24 hr 05/29/22 17:00 05/29/22 16:00 05/29/22 16:00 Temperature 95.9 F L Pulse Rate 108 H 112 H Respiratory Rate 18 Blood Pressure 142/97 H Pulse Oximetry 96 Oxygen Delivery Room Air 05/29/22 18:00 05/29/22 20:00 05/29/22 20:56 Temperature 98.0 F Pulse Rate 97 62 96 Respiratory Rate 18 Blood Pressure 138/76 Pulse Oximetry 96 Oxygen Delivery 05/29/22 20:00 05/29/22 20:00 05/29/22 22:00 Temperature Pulse Rate 101 H 91 Respiratory Rate Blood Pressure Pulse Oximetry 96 Oxygen Delivery Room Air 05/29/22 23:48 05/30/22 00:00 05/30/22 00:00 Temperature 98.0 F Pulse Rate 67 67 Respiratory Rate 18 Blood Pressure 119/76 Pulse Oximetry 96 96 Oxygen Delivery Room Air 05/30/22 00:55 05/30/22 02:00 05/30/22 04:00 Temperature Pulse Rate 92 80 Respiratory Rate Blood Pressure Pulse Oximetry 96 96 Oxygen Delivery CPAP Room Air 05/30/22 04:00 05/30/22 04:00 05/30/22 06:00 Temperature 97.7 F Pulse Rate 72 67 100 Respiratory Rate 20 Blood Pressure 136/83 Pulse Oximetry 99 Oxygen Delivery 05/30/22 08:04 05/30/22 09:53 05/30/22 08:30 Temperature 96.1 F L Pulse Rate 90 109 H 81 Respiratory Rate 22 H Blood Pressure 169/97 H Pulse Oximetry 97 Oxygen Delivery 05/30/22 10:00 05/30/22 12:13 05/30/22 12:00 Temperature 96.6 F L Pulse Rate 95 84 93 Respiratory Rate 20 Blood Pressure 133/85 Pulse Oximetry 97 Oxygen Delivery Intake/Output Intake/Output: Intake & Output 05/27/22 05/28/22 05/29/22 05/30/22 23:59 23:59 23:59 23:59 Intake Total 1745 1860 400 Output Total 325 350 Balance -325 1395 1860 400 Meds/Results Medications: Active Medications Generic Name Dose Route Start Last Admin Trade Name Freq PRN Reason Stop Dose Admin Acetaminophen 650 mg 05/27/22 13:50 Acetaminophen 325 Mg Tablet PO Q4H PRN Mild Pain (1-3) or Fever Albuterol 1 puff 05/28/22 00:00 05/28/22 09:05 Albuterol Sulfate (*Sp) Aerosol 1 Puff INHALATION 1 puff Q4HRT PRN Administration SOB OR WHEEZING Diltiazem HCl 30 mg 05/29/22 12:00 05/30/22 12:45 Diltiazem Hcl 30 Mg Tablet PO 30 mg Q6HR CESAR Administration Escitalopram Oxalate 20 mg 05/28/22 09:00 05/30/22 09:54 Escitalopram Oxalate 10 Mg Tablet PO 20 mg DAILY CESAR Administration Losartan Potassium 50 mg 05/28/22 09:00 05/30/22 09:53
--- NOTE | 2022-05-30 14:25 | P.PCNCC_ITS ---
Cardiac Cath Procedure Note Date of procedure:: 05/30/22 Performing physician:: Barrett Chaudhry MD Indication:: Persistent atrial flutter Brief clinical history:: This is a 57-year-old woman who presented to the hospital several days ago complaining of some shortness of breath and palpitations. She was found to be in atrial flutter with rapid ventricular response. With medication her heart rate is controlled attempt BEBO cardioversion was recommended by my partner. Procedure Procedure performed:: Bebo/cardioversion Sedation/Medication given:: Patient sedated per the Anesthesia Service see their separately dictated note Estimated blood loss:: No blood loss Procedure note:: Patient was brought to the GI lab where she was placed in the supine position with defibrillator patches in the AP position. The patient had or pharyngeal benzocaine sprayed and a bite block placed into position. She was then sedated by the Anesthesia Service. With appropriate sedation the esophagus was intubated with the BEBO probe and the left atrium was inspected in its entirety including the appendage. There was no evidence of left atrial thrombus including in the appendage which looked clean. The BEBO probe was then withdrawn the patient was DC cardioverted with 200 joules x1 shock in a synchronized fashion which restored normal sinus rhythm. Findings:: As above Conclusion:: Successful uncomplicated BEBO/cardioversion terminating atrial flutter restoring sinus rhythm using 200 joules x1 shock after esophageal ECHO showed no evidence of left atrial thrombus. Barrett Chaudhry MD [facility]
--- NOTE | 2022-05-30 16:42 | PC.NURSE ---
@ 1500 - pt returned to room post DAVID/Cardioversion- SR 70's
[2022-05-30] MEDS: RIVAROXABAN 20 MG TABLET PO (17:31)
[2022-05-31] VITALS (8 sets, daily range): BP systolic 119–145; BP diastolic 66–88; PULSE 51–77; RESP 16–18; TEMP 36.2–36.6; O2SAT 95–97
[2022-05-31] MEDS: dilTIAZem HCL 30 MG TABLET PO (05:14)
--- NOTE | 2022-05-31 06:53 | WPDANESPN ---
Anes - Prog Note Post-Op Date/Time: 05/31/22 06:53 Cardiovascular status: normal Respiratory status: normal Airway patency: baseline Mental status: baseline Post-Op hydration status: normal Vital Signs: Last Vital Signs Temp 97.2 F L 05/31/22 04:00 Pulse 56 L 05/31/22 06:00 Resp 16 05/31/22 04:00 BP 130/79 05/31/22 04:00 Pulse Ox 96 05/31/22 04:00 O2 Del Method Room Air 05/31/22 04:00 O2 Flow Rate 3 05/30/22 14:20 Pain Score (VAS): 0/10 I/O: Intake & Output 05/30/22 05/30/22 05/31/22 15:59 23:59 07:59 Intake Total 540 500 Balance 540 500 Laboratory Tests 05/27/22 12:08 05/29/22 10:07 Post-procedural complaints: none Patient Feedback: Patient satisfied with anesthetic care.
--- NOTE | 2022-05-31 09:27 | PM.PNCARD ---
Progress Note: A&P Assessment and Plan (1) Atrial flutter with rapid ventricular response: Code(s): I48.92 - Unspecified atrial flutter Status: Acute Plan 57-year-old lady with a history of atrial fib and atrial flutter. Admitted with a symptomatic recurrence of atrial flutter and RVR. Because of persistent tachycardia underwent DAVID cardioversion yesterday restoring sinus rhythm. Today I will stop her diltiazem since she should not need that anymore for rate control. I am going to transition her metoprolol back to metoprolol succinate for her convenience. Current dosage is 200 mg daily. Systemic anticoagulation is also in place. I will see that the office reaches out to her for follow-up with my partner, Dr. Wells. She also will reach out to her underwriting manager in [place]. Okay for discharge at this time from my perspective Barrett Chaudhry MD [facility] Subjective Date/time seen: Date of service: 05/31/22 09:27 Interval history: Follow-up visit in this 57-year-old lady with: Atrial flutter with rapid ventricular response recurrence of her arrhythmia. Previous history of AFib which was ablated by underwriting manager in [place]. Patient is asymptomatic this morning status post DAVID/cardioversion yesterday restoring sinus rhythm. Exam Const: General: comfortable and no acute distress Other: Very pleasant obese lady no apparent distress HENMT: Mouth: Yes moist mucous membranes Eyes: Sclera: sclerae normal Neck: Neck: supple Resp: Effort & Inspection: normal respiratory effort Auscultation: clear to auscultation bilaterally Cardio: Rate: regular rate Rhythm: regular rhythm GI: GI Palp: Yes Soft to palpation Auscultation: normal bowel sounds Skin: General skin exam: normal color Neuro: Other: Alert and oriented x3 Objective Data Vital Signs Vital Signs: Vital Signs - 24 hr 05/30/22 09:53 05/30/22 10:00 05/30/22 12:13 Temperature 35.9 C L Pulse Rate 109 H 95 84 Respiratory Rate 20 Blood Pressure 133/85 Pulse Oximetry 97 Oxygen Delivery Oxygen Flow Rate 05/30/22 12:00 05/30/22 14:20 05/30/22 14:25 Temperature Pulse Rate 93 63 64 Respiratory Rate 12 12 Blood Pressure 119/83 124/89 Pulse Oximetry 97 93 Oxygen Delivery Nasal Cannula Room Air Oxygen Flow Rate 3 05/30/22 14:30 05/30/22 14:35 05/30/22 14:40 Temperature Pulse Rate 61 61 63 Respiratory Rate 22 H 20 20 Blood Pressure 123/79 114/83 125/85 Pulse Oximetry 93 93 94 Oxygen Delivery Room Air Room Air Room Air Oxygen Flow Rate 05/30/22 14:45 05/30/22 17:15 05/30/22 16:00 Temperature 36.5 C Pulse Rate 62 66 72 Respiratory Rate 22 H 20 Blood Pressure 130/63 132/81 Pulse Oximetry 97 95 Oxygen Delivery Room Air Oxygen Flow Rate 05/30/22 16:00 05/30/22 18:00 05/30/22 20:00 Temperature 37.0 C Pulse Rate 78 79 Respiratory Rate 16 Blood Pressure 130/78 Pulse Oximetry 96 Oxygen Delivery Room Air Oxygen Flow Rate 05/30/22 20:25 05/30/22 20:00 05/30/22 20:00 Temperature Pulse Rate 82 79 Respiratory Rate Blood Pressure Pulse Oximetry 96 Oxygen Delivery Room Air Oxygen Flow Rate 05/30/22 22:00 05/31/22 00:00 05/31/22 00:00 Temperature 36.6 C Pulse Rate 64 64 62 Respiratory Rate 18 Blood Pressure 119/66 Pulse Oximetry 95 Oxygen Delivery Oxygen Flow Rate 05/31/22 00:00 05/30/22 22:26 05/31/22 02:00 Temperature Pulse Rate 18 L 53 L Respiratory Rate Blood Pressure Pulse Oximetry 95 95 Oxygen Delivery Room Air CPAP Oxygen Flow Rate 05/31/22 04:00 05/31/22 04:00 05/31/22 04:00 Temperature 36.2 C L Pulse Rate 51 L 64 Respiratory Rate 16 Blood Pressure 130/79 Pulse Oximetry 95 96 Oxygen Delivery Room Air Oxygen Flow Rate 05/31/22 06:00 05/31/22 08:00 Temperature 36.4 C Pulse Rate 56 L 69 Respiratory Rate 18 Blood Pressure 141/83 H Pulse Oxime
[2022-05-31] MEDS: ESCITALOPRAM OXALATE 10 MG TABLET 20 MG PO (09:51)
[2022-05-31] MEDS: LOSARTAN POTASSIUM 50 MG TABLET BY MOUTH (09:52)
[2022-05-31] MEDS: LOSARTAN POTASSIUM 25 MG TABLET BY MOUTH (09:52)
[2022-05-31] MEDS: METOPROLOL SUCCINATE EXT REL 100 MG TABCR 200 MG PO (10:38)
--- NOTE | 2022-05-31 13:18 | PM.DS ---
DS: Admitting Diagnosis Discharge Date May 31, 2022 Admitting Diagnosis A flutter DS: Discharge Diagnosis Discharge Diagnosis (1) Atrial flutter with rapid ventricular response: Code(s): I48.92 - Unspecified atrial flutter Status: Acute Assessment and Plan: Heart rate improved (2) Hypertension: Code(s): I10 - Essential (primary) hypertension Status: Acute (3) Obstructive sleep apnea on CPAP: Code(s): G47.33 - Obstructive sleep apnea (adult) (pediatric); Z99.89 - Dependence on other enabling machines and devices Status: Acute Assessment and Plan: CPAP DS: Summary Hospital Course Hospital Course: Patient is a 57-year-old female came with AFib flutter. Medications were adjusted she underwent cardioversion is now normal sinus rhythm. Follow Cardiology Time Spent with Patient Time attestation: Total time spent providing and/or coordinating discharge services: Exam Narrative: General: Well-developed female supine in bed in no distress. Weight: 34.3 kilograms. BMI: 42.5. HEENT: PERRL, EOMI. Sclera anicteric. Oral mucosa moist. Neck: Supple. No obvious JVD. Respiratory: Lungs are clear to auscultation bilaterally. Cardiovascular: Tachycardic with normal S1-S2. Gastrointestinal: Abdomen is soft, obese, nontender, and nondistended with positive bowel sounds. Skin: Warm and dry. No rash or lesions on limited exam. Extremities: No cyanosis, clubbing, or edema. Radial and pedal pulses intact. Neurological: Alert. Cranial nerves 2-12 are grossly intact. No gross focal deficits to casual conversation. Psychiatric: Pleasant and cooperative with normal mood and affect. Judgment and insight intact. Discharge Plan Discharge Attending physician on discharge: Barrett Mullen Consulting providers: Rick Wells Discharging Clinician: Barrett Mullen Patient Disposition: Home, Self-Care Activity: no preference Diet: as tolerated Patient Instructions: Antibiotic Form Stand Alone Forms: General Discharge Information Follow-up/Referrals: Rick Wells MD [Physician] - Mookie Perez MD [Primary Care Provider] - Discharge Medications: New metoprolol succinate [Toprol XL] 100 mg Tablet Extended Release 24 Hr 200 mg PO QAM 30 Days Qty: 60 0RF Xarelto 20 mg Tablet 20 mg PO DAILY@1700 30 Days Qty: 30 0RF Continued escitalopram oxalate [Lexapro] 20 mg tablet 20 mg PO DAILY Qty: 90 3RF losartan 50 mg tablet See Rx Instructions .ROUTE .COMPLEX Qty: 135 0RF Dose Instruction: TAKE 1 TABLET BY MOUTH DAILY Rx Instructions: TAKE 1.5 TABLET BY MOUTH DAILY albuterol sulfate 90 mcg/actuation HFA aerosol inhaler See Rx Instructions .ROUTE .COMPLEX Qty: 36 0RF Dose Instruction: INHALE 1 PUFF BY MOUTH EVERY 4 HOURS NEEDED FOR SHORTNESS OF BREATH OR WHEEZING Rx Instructions: INHALE 1 PUFF BY MOUTH EVERY 4 HOURS NEEDED FOR SHORTNESS OF BREATH OR WHEEZING meloxicam 15 mg tablet 15 mg PO DAILY Qty: 90 3RF levonorgestrel-ethinyl estrad 0.15 mg-30 mcg (91) tablets,dose pack,3 month 1 tablet PO DAILY Qty: 91 2RF Discontinued metoprolol tartrate 50 mg tablet See Rx Instructions .ROUTE .COMPLEX Qty: 180 0RF Dose Instruction: TAKE 1 TABLET BY MOUTH EVERY 12 HOURS Rx Instructions: TAKE 1 TABLET BY MOUTH EVERY 12 HOURS Date of admission: 05/29/22 15:29 Primary Care Provider: Mookie Perez Admitting Provider: Barrett Mullen Attending physician on admission: Barrett Mullen Condition: Stable
== END 2022-05-31 13:54 | disposition home or self-care (01) | DRG 309 ==
LOC: ANHED 13:50 → ANHIMU 05-28 19:13
PROVIDERS: Nurse Practitioner; Specialist; Admitting Provider Chiropractor; Emergency Provider Family Medicine; PCP Family Medicine; Visit Provider Chiropractor
PROC: 5A2204Z Restoration of Cardiac Rhythm, Single (ICD-10-PCS; CPT 93312; principal; 2022-05-30 14:30)
PROC: 5A2204Z Restoration of Cardiac Rhythm, Single (ICD-10-PCS; 2022-05-30 14:30)
DX: I48.92 Unspecified atrial flutter (principal); Z68.41 Body mass index [BMI] 40.0-44.9, adult; I10 Essential (primary) hypertension; G47.33 Obstructive sleep apnea (adult) (pediatric); E66.01 Morbid (severe) obesity due to excess calories; I34.0 Nonrheumatic mitral (valve) insufficiency; I27.20 Pulmonary hypertension, unspecified; N28.9 Disorder of kidney and ureter, unspecified; Z71.3 Dietary counseling and surveillance; Z20.822 Contact with and (suspected) exposure to COVID-19; Z87.891 Personal history of nicotine dependence; Z88.0 Allergy status to penicillin; Z88.2 Allergy status to sulfonamides; Z82.49 Family history of ischemic heart disease and other diseases of the circulatory system; Z83.3 Family history of diabetes mellitus
CPT/HCPCS: 36415; 80048; 80053; 83735; 84443; 84484; 85025; 85610; 85730; 87636; 92960; 93005; 93312; 93320; 93325; 94640; 96365; 96366; 96372; 96375; 96376; 99285; A9270; C8929; G0378; J1650; Q9957